=== PATIENT | male | born 1985 | race Caucasian/White ===

== ENCOUNTER → 2017-09-20 | Outpatient (CLI) | payer OTHER ==
--- NOTE | 2017-09-20 12:01 | DIAGNOSTIC IMAGING REPORT ---
R LOWER EXT JOINT WITHOUT CLINICAL HISTORY: 32 years-old Male with RIGHT LEG PAIN. Acute right knee pain status post basketball injury. Limited range of motion. COMPARISON: None available TECHNIQUE: Multiplanar, multisequence MRI of the right knee was performed without intravenous contrast. FINDINGS: MENISCI: Mild intrameniscal degeneration is noted within the posterior horn medial meniscus. Bilateral menisci are sharp in contour and appears intact without tear. CRUCIATE LIGAMENTS: The anterior and posterior cruciate ligaments are intact. Mildly increased intrasubstance T2 signal of the ACL suggesting mucoid degeneration without tear. COLLATERAL LIGAMENTS: The popliteus tendon, biceps femoris tendon, fibular collateral ligament and iliotibial band are intact. The superficial and deep components of the medial collateral ligament are intact. EXTENSOR MECHANISM: There is an acute full-thickness tear of the proximal insertional patellar tendon with diastases of the ruptured fragments measuring up to 1.7 cm. Amorphous, discontinuous and retracted fibers are noted adjacent to the patellar tendon insertion site about the patella. There is moderate associated soft tissue swelling and edema in the superficial tissues and within Hoffa's fat pad. There is also discontinuity of the lateral patellar retinaculum suspicious for at least high-grade partial tear as seen on image 13 of series 8. KNEE JOINT: Small joint effusion. No osteochondral defect or intra-articular loose body identified. Patella is well seated within the trochlear groove. BONE MARROW: The bone marrow signal is age appropriate. No fracture, or marrow replacing process. No patellar avulsion fracture notified. Minimal marrow edema is noted involving the superior pole patella suggesting contusion. SOFT TISSUES: Moderate circumferential soft tissue edema about the knee, greatest anteriorly. IMPRESSION: 1. Acute full-thickness tear of the proximal insertional fibers of the patellar tendon with diastases of the ruptured retracted, amorphous and discontiguous fibers of 1.7 cm. 2. Discontinuity of the lateral patellar retinaculum suggests at least high-grade partial tear. 3. Degeneration of the posterior horn medial meniscus without discrete meniscal tear, cruciate or collateral ligament injury. 4. No acute fracture. The above report was generated using voice recognition software. It may contain grammatical, syntax or spelling errors. Electronically signed by: Michael Barajas M.D. 09/20/2017 12:00 PM Dictated Date/Time: 09/20/2017 11:17 AM
== END | disposition home or self-care (01) ==
LOC: C.MRI 09:37
PROVIDERS: ATTEND Orthopaedic Surgery Sports Medicine
DX: S86.811A Strain of other muscle(s) and tendon(s) at lower leg level, right leg, initial encounter (principal); X58.XXXA Exposure to other specified factors, initial encounter; Y93.67 Activity, basketball